=== PATIENT | female | born 1970 | race Caucasian/White ===

== ENCOUNTER → 2016-11-11 15:48 | Emergency (ER) | payer OTHER | END | disposition left against medical advice (07) | LOC: D.ER 15:48 | DX: S16.1XXA Strain of muscle, fascia and tendon at neck level, initial encounter (principal); V43.52XA Car driver injured in collision with other type car in traffic accident, initial encounter; Y93.89 Activity, other specified; Y92.410 Unspecified street and highway as the place of occurrence of the external cause; M79.604 Pain in right leg; F17.200 Nicotine dependence, unspecified, uncomplicated ==

== ENCOUNTER 2016-11-11 17:40 | Emergency (ER) | payer OTHER | END 2016-11-11 20:22 | disposition home or self-care (01) | LOC: D.ER 17:40 | DX: G89.18 Other acute postprocedural pain (principal); T81.4XXA Infection following a procedure, initial encounter; L08.9 Local infection of the skin and subcutaneous tissue, unspecified; E11.9 Type 2 diabetes mellitus without complications; I10 Essential (primary) hypertension ==

== ENCOUNTER 2016-11-15 10:15 | Emergency (ER) | payer OTHER | END 2016-11-15 12:09 | disposition home or self-care (01) | LOC: D.ER 10:15 | DX: M54.10 Radiculopathy, site unspecified (principal) ==

== ENCOUNTER 2018-07-21 08:08 | Emergency (ER) | payer OTHER ==
[~2018-07-21] VITALS: Ht 160 cm; Wt 76.4 kg
[2018-07-21 08:41] VITALS: Ht 160 cm; Wt 76.4 kg
[2018-07-21 08:51] LABS: BASOPHILS 0.2 % (0-2); EOSINOPHILS 0.3 % (0-7); HEMATOCRIT 48.5 % (36.0-48.0); HEMOGLOBIN 16.8 g/dL (12-16); IMMATURE GRANULOCYTES 0.3 % (0-5); MCH 31.1 pg (26.0-34.0); MCHC 34.6 g/dL (31.0-37.0); MCV 89.6 fL (80.0-100.0); MEAN PLATELET VOLUME 9.3 fL (7.4-10.4); MONOCYTES 4.5 % (2-11); NEUTROPHILS 77.7 % (40-80); PLATELET COUNT 276 10x3/uL (130-400); RBC 5.41 10x6/uL (4.00-5.40); RDW 13.5 % (11.5-14.5); WBC 12.2 10x3/uL (4.8-10.8)
[2018-07-21 08:56] LABS: ALBUMIN 3.7 g/dL (3.4-5.0); ALKALINE PHOSPHATASE 100 U/L (46-116); ALT (SGPT) 27 U/L (10-68); BILIRUBIN - TOTAL 0.26 mg/dL (0.2-1.3); CALC OSMOLALITY 275 mosm/kg (275-300); CALCIUM 9.6 mg/dL (8.5-10.1); CARBON DIOXIDE 26.5 mmol/L (21.0-32.0); CHLORIDE - SERUM 102 mmol/L (98-107); CREATININE - SERUM 0.8 mg/dL (0.6-1.3); GLUCOSE 121 mg/dL (74-106); POTASSIUM - SERUM 4.3 mmol/L (3.5-5.1); PROTEIN - SERUM 7.7 g/dL (6.4-8.2); SODIUM 136 mmol/L (136-145); UREA NITROGEN 20 mg/dL (7-18); eGFR NON AFRICAN AMERICAN 80 mL/min (90-120)
[2018-07-21 09:08] LABS: CKMB 0.7 U/L (0.0-3.6); CREATINE KINASE 75 UL (21-215); LIPASE 229 U/L (73-393); TROPONIN-I < 0.017 ng/mL (0.000-0.060)
[2018-07-21 12:04] LABS: AMORPHOUS SEDIMENT <1+ /lpf (NONE SEEN); APPEARANCE HAZY (CLEAR); BACTERIA FEW /hpf (NONE SEEN); BILIRUBIN NEGATIVE (NEGATIVE); COLOR YELLOW (YELLOW); EPITHELIAL CELLS RARE /hpf (0-5); GLUCOSE NEGATIVE (NEGATIVE); KETONE NEGATIVE (NEGATIVE); NITRITE NEGATIVE (NEGATIVE); PROTEIN NEGATIVE (NEGATIVE); WHITE CELLS - URINE RARE /hpf (0-5)
[2018-07-21] MEDS ORDERED: PROTONIX40 MG PO (13:46)
[2018-07-21] MEDS ORDERED: ZOFRAN4 MG PO (13:46)
[2018-07-21 14:06] VITALS: BP 111/64
== END 2018-07-21 14:08 | disposition home or self-care (01) ==
LOC: D.ER 08:08
PROVIDERS: Family Medicine
DX: R11.10 Vomiting, unspecified (principal); K29.70 Gastritis, unspecified, without bleeding; R55 Syncope and collapse

== ENCOUNTER 2018-08-03 18:57 | Inpatient (IN) | payer OTHER ==
[~2018-08-03] VITALS: Ht 160 cm; Wt 72.7 kg
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
[~2018-08-03 18:57] MED LIST: PROTONIX40 MG PO; ZOFRAN4 MG PO
[2018-08-03 19:20] LABS: BASOPHILS 0.1 % (0-2); EOSINOPHILS 1.1 % (0-7); HEMOGLOBIN 16.7 g/dL (12-16); IMMATURE GRANULOCYTES 0.3 % (0-5); LYMPHOCYTES 28.1 % (15-50); MCH 31.3 pg (26.0-34.0); MCHC 35.5 g/dL (31.0-37.0); MCV 88.2 fL (80.0-100.0); MEAN PLATELET VOLUME 9.1 fL (7.4-10.4); NEUTROPHILS 59.4 % (40-80); PLATELET COUNT 195 10x3/uL (130-400); RBC 5.33 10x6/uL (4.00-5.40); RDW 13.3 % (11.5-14.5)
[2018-08-03 19:35] LABS: ALBUMIN 3.5 g/dL (3.4-5.0); ANION GAP 17.8 mmol/L (8-16); BILIRUBIN - TOTAL 0.29 mg/dL (0.2-1.3); CALCIUM 8.3 mg/dL (8.5-10.1); CARBON DIOXIDE 21.2 mmol/L (21.0-32.0); CREATININE - SERUM 0.9 mg/dL (0.6-1.3)
[2018-08-03 20:00] VITALS: BP 144/72
[2018-08-03 22:57] VITALS: BP 114/77; BMI 28.4
[2018-08-04 08:05] VITALS: BP 122/75
[2018-08-04 09:12] LABS: BASOPHILS 0.1 % (0-2); EOSINOPHILS 1.1 % (0-7); HEMATOCRIT 41.6 % (36.0-48.0); HEMOGLOBIN 14.2 g/dL (12-16); IMMATURE GRANULOCYTES 0.2 % (0-5); LYMPHOCYTES 18.8 % (15-50); MCH 30.7 pg (26.0-34.0); MCHC 34.1 g/dL (31.0-37.0); MCV 89.8 fL (80.0-100.0); MEAN PLATELET VOLUME 9.2 fL (7.4-10.4); MONOCYTES 10.7 % (2-11); NEUTROPHILS 69.1 % (40-80); PLATELET COUNT 197 10x3/uL (130-400); RBC 4.63 10x6/uL (4.00-5.40); RDW 13.5 % (11.5-14.5); WBC 8.4 10x3/uL (4.8-10.8)
[2018-08-04 09:21] LABS: ALKALINE PHOSPHATASE 89 U/L (46-116); ALT (SGPT) 17 U/L (10-68); BILIRUBIN - TOTAL 0.27 mg/dL (0.2-1.3); CALC OSMOLALITY 273 mosm/kg (275-300); CALCIUM 7.7 mg/dL (8.5-10.1); CHLORIDE - SERUM 104 mmol/L (98-107); CREATININE - SERUM 0.7 mg/dL (0.6-1.3); GLUCOSE 87 mg/dL (74-106); POTASSIUM - SERUM 3.7 mmol/L (3.5-5.1); PROTEIN - SERUM 6.3 g/dL (6.4-8.2); SODIUM 138 mmol/L (136-145); UREA NITROGEN 11 mg/dL (7-18); eGFR NON AFRICAN AMERICAN > 90 mL/min (90-120)
[2018-08-04 12:10] VITALS: BP 112/69
[2018-08-04 15:18] VITALS: BP 104/68
[2018-08-04 20:00] VITALS: BP 110/69
[2018-08-05] VITALS: BP 115/71
[2018-08-05 04:35] LABS: BASOPHILS 0.3 % (0-2); EOSINOPHILS 1.3 % (0-7); HEMATOCRIT 40.4 % (36.0-48.0); HEMOGLOBIN 13.5 g/dL (12-16); IMMATURE GRANULOCYTES 0.3 % (0-5); LYMPHOCYTES 32.1 % (15-50); MCHC 33.4 g/dL (31.0-37.0); MCV 89.8 fL (80.0-100.0); MONOCYTES 13.4 % (2-11); NEUTROPHILS 52.6 % (40-80); PLATELET COUNT 179 10x3/uL (130-400); RDW 13.5 % (11.5-14.5); WBC 6.4 10x3/uL (4.8-10.8)
[2018-08-05 04:52] LABS: ALBUMIN 2.6 g/dL (3.4-5.0); ALKALINE PHOSPHATASE 80 U/L (46-116); ALT (SGPT) 18 U/L (10-68); BILIRUBIN - TOTAL 0.36 mg/dL (0.2-1.3); CALC OSMOLALITY 276 mosm/kg (275-300); CALCIUM 7.9 mg/dL (8.5-10.1); CARBON DIOXIDE 25.5 mmol/L (21.0-32.0); CHLORIDE - SERUM 106 mmol/L (98-107); CREATININE - SERUM 0.6 mg/dL (0.6-1.3); GLUCOSE 76 mg/dL (74-106); PROTEIN - SERUM 5.9 g/dL (6.4-8.2); SODIUM 141 mmol/L (136-145); eGFR NON AFRICAN AMERICAN > 90 mL/min (90-120)
[2018-08-05 05:00] LABS: UREA NITROGEN 5 mg/dL (7-18)
[2018-08-05 06:41] VITALS: BP 111/66
[2018-08-05 08:07] VITALS: BP 109/68
[2018-08-05 16:40] VITALS: BP 124/72
[2018-08-05 20:00] VITALS: BP 112/71
[2018-08-06 00:40] VITALS: BP 109/70
[2018-08-06 04:24] LABS: BASOPHILS 0.2 % (0-2); EOSINOPHILS 1.2 % (0-7); HEMATOCRIT 37.6 % (36.0-48.0); HEMOGLOBIN 12.6 g/dL (12-16); IMMATURE GRANULOCYTES 0.1 % (0-5); LYMPHOCYTES 20.6 % (15-50); MCH 29.8 pg (26.0-34.0); MCHC 33.5 g/dL (31.0-37.0); MCV 88.9 fL (80.0-100.0); MEAN PLATELET VOLUME 8.8 fL (7.4-10.4); MONOCYTES 10.9 % (2-11); PLATELET COUNT 177 10x3/uL (130-400); RBC 4.23 10x6/uL (4.00-5.40); RDW 13.4 % (11.5-14.5)
[2018-08-06 04:32] LABS: WBC 8.1 10x3/uL (4.8-10.8)
[2018-08-06 04:39] VITALS: BP 113/67
[2018-08-06 04:49] LABS: ALBUMIN 2.5 g/dL (3.4-5.0); ALKALINE PHOSPHATASE 74 U/L (46-116); ALT (SGPT) 17 U/L (10-68); BILIRUBIN - TOTAL 0.73 mg/dL (0.2-1.3); CALC OSMOLALITY 277 mosm/kg (275-300); CALCIUM 7.7 mg/dL (8.5-10.1); CARBON DIOXIDE 24.9 mmol/L (21.0-32.0); CHLORIDE - SERUM 105 mmol/L (98-107); CREATININE - SERUM 0.6 mg/dL (0.6-1.3); GLUCOSE 75 mg/dL (74-106); POTASSIUM - SERUM 3.7 mmol/L (3.5-5.1); PROTEIN - SERUM 5.8 g/dL (6.4-8.2); SODIUM 141 mmol/L (136-145); eGFR NON AFRICAN AMERICAN > 90 mL/min (90-120)
[2018-08-06 04:56] LABS: UREA NITROGEN 8 mg/dL (7-18)
[2018-08-06 08:56] VITALS: BP 103/67
[2018-08-06 12:20] VITALS: Ht 160 cm; Wt 72.7 kg
[2018-08-06 13:34] VITALS: BP 113/72
[2018-08-06 16:25] VITALS: BP 102/60
[2018-08-06 20:00] VITALS: BP 102/67
[2018-08-07] VITALS (12 sets, daily range): BP systolic 96–126; BP diastolic 54–80
[2018-08-07 04:28] LABS: BASOPHILS 0.1 % (0-2); EOSINOPHILS 3.2 % (0-7); HEMATOCRIT 36.7 % (36.0-48.0); HEMOGLOBIN 12.4 g/dL (12-16); IMMATURE GRANULOCYTES 0.4 % (0-5); LYMPHOCYTES 11.7 % (15-50); MCH 29.9 pg (26.0-34.0); MCHC 33.8 g/dL (31.0-37.0); MCV 88.4 fL (80.0-100.0); MEAN PLATELET VOLUME 8.9 fL (7.4-10.4); MONOCYTES 10.1 % (2-11); NEUTROPHILS 74.5 % (40-80); PLATELET COUNT 190 10x3/uL (130-400); RBC 4.15 10x6/uL (4.00-5.40); RDW 13.3 % (11.5-14.5); WBC 8.5 10x3/uL (4.8-10.8)
[2018-08-07 04:55] LABS: ALBUMIN 2.3 g/dL (3.4-5.0); ALKALINE PHOSPHATASE 67 U/L (46-116); BILIRUBIN - TOTAL 0.82 mg/dL (0.2-1.3); CALC OSMOLALITY 270 mosm/kg (275-300); CALCIUM 7.5 mg/dL (8.5-10.1); CARBON DIOXIDE 26.1 mmol/L (21.0-32.0); CHLORIDE - SERUM 102 mmol/L (98-107); CREATININE - SERUM 0.6 mg/dL (0.6-1.3); GLUCOSE 86 mg/dL (74-106); POTASSIUM - SERUM 3.7 mmol/L (3.5-5.1); PROTEIN - SERUM 5.6 g/dL (6.4-8.2); SODIUM 137 mmol/L (136-145); UREA NITROGEN 6 mg/dL (7-18); eGFR NON AFRICAN AMERICAN > 90 mL/min (90-120)
[2018-08-07 04:58] LABS: ALT (SGPT) 12 U/L (10-68)
[2018-08-08 00:58] VITALS: BP 107/62
[2018-08-08 05:02] LABS: BASOPHILS 0.1 % (0-2); HEMATOCRIT 32.3 % (36.0-48.0); HEMOGLOBIN 11.1 g/dL (12-16); IMMATURE GRANULOCYTES 0.5 % (0-5); LYMPHOCYTES 14.1 % (15-50); MCH 30.2 pg (26.0-34.0); MCHC 34.4 g/dL (31.0-37.0); MEAN PLATELET VOLUME 8.8 fL (7.4-10.4); MONOCYTES 9.1 % (2-11); NEUTROPHILS 75.2 % (40-80); RBC 3.67 10x6/uL (4.00-5.40); RDW 13.1 % (11.5-14.5)
[2018-08-08 05:11] LABS: PLATELET COUNT 231 10x3/uL (130-400); WBC 11.1 10x3/uL (4.8-10.8)
[2018-08-08 05:14] LABS: ALBUMIN 2.1 g/dL (3.4-5.0); ALKALINE PHOSPHATASE 58 U/L (46-116); ALT (SGPT) 15 U/L (10-68); BILIRUBIN - TOTAL 0.48 mg/dL (0.2-1.3); CALC OSMOLALITY 276 mosm/kg (275-300); CALCIUM 8.3 mg/dL (8.5-10.1); CARBON DIOXIDE 27.2 mmol/L (21.0-32.0); CHLORIDE - SERUM 105 mmol/L (98-107); CREATININE - SERUM 0.6 mg/dL (0.6-1.3); GLUCOSE 104 mg/dL (74-106); POTASSIUM - SERUM 3.9 mmol/L (3.5-5.1); PROTEIN - SERUM 5.5 g/dL (6.4-8.2); SODIUM 140 mmol/L (136-145); eGFR NON AFRICAN AMERICAN > 90 mL/min (90-120)
[2018-08-08 05:15] LABS: UREA NITROGEN 8 mg/dL (7-18)
[2018-08-08 05:44] VITALS: BP 108/68
[2018-08-08 08:01] VITALS: BP 128/71
[2018-08-08 16:35] VITALS: BP 126/74
[2018-08-08 20:00] VITALS: BP 97/62
[2018-08-09] VITALS: BP 98/61
[2018-08-09 04:00] VITALS: BP 117/70
[2018-08-09 06:27] LABS: BASOPHILS 0.2 % (0-2); EOSINOPHILS 6.3 % (0-7); HEMATOCRIT 31.4 % (36.0-48.0); HEMOGLOBIN 10.3 g/dL (12-16); IMMATURE GRANULOCYTES 0.3 % (0-5); LYMPHOCYTES 23.9 % (15-50); MCH 29.7 pg (26.0-34.0); MCHC 32.8 g/dL (31.0-37.0); MEAN PLATELET VOLUME 8.6 fL (7.4-10.4); MONOCYTES 10.6 % (2-11); NEUTROPHILS 58.7 % (40-80); PLATELET COUNT 249 10x3/uL (130-400); RBC 3.47 10x6/uL (4.00-5.40); RDW 13.3 % (11.5-14.5); WBC 8.8 10x3/uL (4.8-10.8)
[2018-08-09 06:31] LABS: MCV 90.5 fL (80.0-100.0)
[2018-08-09 06:57] LABS: ALKALINE PHOSPHATASE 52 U/L (46-116); CALC OSMOLALITY 282 mosm/kg (275-300); CALCIUM 8.1 mg/dL (8.5-10.1); CARBON DIOXIDE 29.2 mmol/L (21.0-32.0); CHLORIDE - SERUM 105 mmol/L (98-107); CREATININE - SERUM 0.7 mg/dL (0.6-1.3); GLUCOSE 91 mg/dL (74-106); PROTEIN - SERUM 5.3 g/dL (6.4-8.2); SODIUM 143 mmol/L (136-145); UREA NITROGEN 7 mg/dL (7-18); eGFR NON AFRICAN AMERICAN > 90 mL/min (90-120)
[2018-08-09 07:08] LABS: ALT (SGPT) 11 U/L (10-68); POTASSIUM - SERUM 3.2 mmol/L (3.5-5.1)
[2018-08-09 08:36] VITALS: BP 128/73
[2018-08-09 13:15] VITALS: BP 112/71
[2018-08-09 16:44] VITALS: BP 106/61
[2018-08-09 20:00] VITALS: BP 104/60
[2018-08-10] VITALS (8 sets, daily range): BP systolic 95–126; BP diastolic 50–82
[2018-08-10 06:10] LABS: BASOPHILS 0.2 % (0-2); EOSINOPHILS 5.4 % (0-7); HEMATOCRIT 32.4 % (36.0-48.0); HEMOGLOBIN 10.5 g/dL (12-16); IMMATURE GRANULOCYTES 0.5 % (0-5); LYMPHOCYTES 23.5 % (15-50); MCH 29.2 pg (26.0-34.0); MCHC 32.4 g/dL (31.0-37.0); MCV 90.3 fL (80.0-100.0); MEAN PLATELET VOLUME 8.8 fL (7.4-10.4); MONOCYTES 11.4 % (2-11); PLATELET COUNT 282 10x3/uL (130-400); RBC 3.59 10x6/uL (4.00-5.40); RDW 13.3 % (11.5-14.5); WBC 8.7 10x3/uL (4.8-10.8)
[2018-08-10 06:47] LABS: ALKALINE PHOSPHATASE 55 U/L (46-116); BILIRUBIN - TOTAL 0.79 mg/dL (0.2-1.3); CALCIUM 8.5 mg/dL (8.5-10.1); CARBON DIOXIDE 29.7 mmol/L (21.0-32.0); CHLORIDE - SERUM 104 mmol/L (98-107); CREATININE - SERUM 0.6 mg/dL (0.6-1.3); GLUCOSE 94 mg/dL (74-106); PROTEIN - SERUM 5.5 g/dL (6.4-8.2); SODIUM 142 mmol/L (136-145); eGFR NON AFRICAN AMERICAN > 90 mL/min (90-120)
[2018-08-10 06:48] LABS: ALT (SGPT) 7 U/L (10-68); CALC OSMOLALITY 279 mosm/kg (275-300); POTASSIUM - SERUM 3.7 mmol/L (3.5-5.1); UREA NITROGEN 5 mg/dL (7-18)
[2018-08-11 04:00] VITALS: BP 112/65
[2018-08-11 04:40] LABS: BASOPHILS 0.3 % (0-2); EOSINOPHILS 6.3 % (0-7); HEMATOCRIT 31.9 % (36.0-48.0); HEMOGLOBIN 10.5 g/dL (12-16); IMMATURE GRANULOCYTES 0.8 % (0-5); LYMPHOCYTES 31.7 % (15-50); MCH 29.7 pg (26.0-34.0); MCHC 32.9 g/dL (31.0-37.0); MCV 90.4 fL (80.0-100.0); MEAN PLATELET VOLUME 8.3 fL (7.4-10.4); MONOCYTES 10.3 % (2-11); NEUTROPHILS 50.6 % (40-80); PLATELET COUNT 286 10x3/uL (130-400); RBC 3.53 10x6/uL (4.00-5.40); RDW 13.2 % (11.5-14.5); WBC 7.8 10x3/uL (4.8-10.8)
[2018-08-11 04:56] LABS: ALBUMIN 2.1 g/dL (3.4-5.0); ALKALINE PHOSPHATASE 60 U/L (46-116); BILIRUBIN - TOTAL 0.72 mg/dL (0.2-1.3); CALC OSMOLALITY 277 mosm/kg (275-300); CALCIUM 8.7 mg/dL (8.5-10.1); CARBON DIOXIDE 29.4 mmol/L (21.0-32.0); CHLORIDE - SERUM 104 mmol/L (98-107); CREATININE - SERUM 0.6 mg/dL (0.6-1.3); GLUCOSE 96 mg/dL (74-106); POTASSIUM - SERUM 3.7 mmol/L (3.5-5.1); PROTEIN - SERUM 5.7 g/dL (6.4-8.2); SODIUM 141 mmol/L (136-145); UREA NITROGEN 5 mg/dL (7-18); eGFR NON AFRICAN AMERICAN > 90 mL/min (90-120)
[2018-08-11 05:11] LABS: ALT (SGPT) 9 U/L (10-68)
[2018-08-11 08:42] VITALS: BP 116/74
[2018-08-11 16:27] VITALS: BP 103/71
[2018-08-11 20:00] VITALS: BP 104/68
[2018-08-12 05:00] VITALS: BP 121/79
[2018-08-12 06:11] LABS: BASOPHILS 0.2 % (0-2); EOSINOPHILS 5.3 % (0-7); HEMATOCRIT 32.5 % (36.0-48.0); HEMOGLOBIN 10.7 g/dL (12-16); IMMATURE GRANULOCYTES 0.6 % (0-5); MCH 29.5 pg (26.0-34.0); MCHC 32.9 g/dL (31.0-37.0); MCV 89.5 fL (80.0-100.0); MEAN PLATELET VOLUME 8.7 fL (7.4-10.4); MONOCYTES 11.4 % (2-11); NEUTROPHILS 53.5 % (40-80); RBC 3.63 10x6/uL (4.00-5.40); RDW 13.2 % (11.5-14.5); WBC 8.3 10x3/uL (4.8-10.8)
[2018-08-12 06:25] LABS: PLATELET COUNT 356 10x3/uL (130-400)
[2018-08-12 06:26] LABS: ALBUMIN 2.2 g/dL (3.4-5.0); ALKALINE PHOSPHATASE 65 U/L (46-116); BILIRUBIN - TOTAL 0.92 mg/dL (0.2-1.3); CALC OSMOLALITY 273 mosm/kg (275-300); CALCIUM 9.2 mg/dL (8.5-10.1); CARBON DIOXIDE 27.3 mmol/L (21.0-32.0); CHLORIDE - SERUM 102 mmol/L (98-107); CREATININE - SERUM 0.7 mg/dL (0.6-1.3); GLUCOSE 89 mg/dL (74-106); POTASSIUM - SERUM 3.5 mmol/L (3.5-5.1); PROTEIN - SERUM 6.1 g/dL (6.4-8.2); SODIUM 139 mmol/L (136-145); UREA NITROGEN 5 mg/dL (7-18); eGFR NON AFRICAN AMERICAN > 90 mL/min (90-120)
[2018-08-12 06:27] LABS: ALT (SGPT) 13 U/L (10-68)
[2018-08-12 08:21] VITALS: BP 104/52
[2018-08-12] MEDS ORDERED: DEMEROL100 MG PO (09:08)
[2018-08-12] MEDS ORDERED: MIRALAX17 GM PO (09:21)
[2018-08-12 12:28] VITALS: BP 83/44
== END 2018-08-12 14:20 | disposition home or self-care (01) | DRG 488 ==
LOC: D.ER 18:57 → D.EDHOLD 19:53 → D.MS 19:53
PROVIDERS: Family Medicine; Internal Medicine Nephrology; Orthopaedic Surgery
PROC: 0QSH04Z Reposition Left Tibia with Internal Fixation Device, Open Approach (ICD-10-PCS; 2018-08-07)
PROC: 0KNT0ZZ Release Left Lower Leg Muscle, Open Approach (ICD-10-PCS; 2018-08-07)
PROC: 0SQD0ZZ Repair Left Knee Joint, Open Approach (ICD-10-PCS; principal; 2018-08-07 08:30)
DX: S82.142A Displaced bicondylar fracture of left tibia, initial encounter for closed fracture (principal); F17.213 Nicotine dependence, cigarettes, with withdrawal; W19.XXXA Unspecified fall, initial encounter; Y92.009 Unspecified place in unspecified non-institutional (private) residence as the place of occurrence of the external cause; S82.402A Unspecified fracture of shaft of left fibula, initial encounter for closed fracture; S83.272A Complex tear of lateral meniscus, current injury, left knee, initial encounter

== ENCOUNTER → 2018-10-20 10:09 | Outpatient (CLI) | payer OTHER ==
[2018-08-06 12:20] VITALS: BMI 28.4
[~2018-10-20 10:09] MED LIST changes: +DEMEROL100 MG PO; +MIRALAX17 GM PO
== END | disposition home or self-care (01) ==
LOC: D.US 10:00
DX: S82.202D Unspecified fracture of shaft of left tibia, subsequent encounter for closed fracture with routine healing (principal); X58.XXXA Exposure to other specified factors, initial encounter

== ENCOUNTER 2019-02-28 23:33 | Inpatient (IN) | payer OTHER ==
[~2019-02-28] VITALS: Ht 160 cm; Wt 77.3 kg
[2019-03-01 00:02] LABS: BASOPHILS 0.2 % (0-2); EOSINOPHILS 1.4 % (0-7); HEMATOCRIT 45.4 % (36.0-48.0); HEMOGLOBIN 15.6 g/dL (12-16); IMMATURE GRANULOCYTES 0.3 % (0-5); LYMPHOCYTES 35.5 % (15-50); MCH 30.8 pg (26.0-34.0); MCHC 34.4 g/dL (31.0-37.0); MCV 89.5 fL (80.0-100.0); MEAN PLATELET VOLUME 8.7 fL (7.4-10.4); MONOCYTES 7.6 % (2-11); RBC 5.07 10x6/uL (4.00-5.40); RDW 14.3 % (11.5-14.5); WBC 10.4 10x3/uL (4.8-10.8)
[2019-03-01 00:04] LABS: PLATELET COUNT 215 10x3/uL (130-400)
[2019-03-01 00:26] LABS: ALBUMIN 3.4 g/dL (3.4-5.0); ANION GAP 8.9 mmol/L (8-16); BILIRUBIN - TOTAL 0.54 mg/dL (0.2-1.3); CALCIUM 9.6 mg/dL (8.5-10.1); CARBON DIOXIDE 31.6 mmol/L (21.0-32.0); CREATININE - SERUM 0.9 mg/dL (0.6-1.3); POTASSIUM - SERUM 3.5 mmol/L (3.5-5.1); PROTEIN - SERUM 7.3 g/dL (6.4-8.2)
[2019-03-01 01:55] LABS: APPEARANCE HAZY (CLEAR); BACTERIA FEW /hpf (NONE SEEN); BILIRUBIN NEGATIVE (NEGATIVE); COLOR DK YELLOW (YELLOW); GLUCOSE NEGATIVE (NEGATIVE); HYALINE CAST OCC /lpf (NONE SEEN); KETONE NEGATIVE (NEGATIVE); NITRITE NEGATIVE (NEGATIVE); PROTEIN TRACE mg/dL (NEGATIVE); RED CELLS - URINE 0-5 /hpf (0-5); SPECIFIC GRAVITY 1.015 (1.005-1.020); WHITE CELLS - URINE 0-5 /hpf (0-5)
[2019-03-01 03:29] VITALS: BP 132/75; BMI 30.1
[2019-03-01 07:47] VITALS: BP 98/54
[2019-03-01 13:06] VITALS: BP 103/66
[2019-03-01 17:10] VITALS: BP 116/77; BP 122/62
[2019-03-01 17:36] VITALS: Ht 160 cm; Wt 77.3 kg
--- NOTE | 2019-03-01 19:00 | NUR ---
ALERT AND ORIENTED. SISTER IN ROOM. DENIES DISCOMFORT AT THIS TIME. ASKS TO BE ABLE TO WALK AROUND HOSPITAL WITH SISTER. PROVIDED WHEEL CHAIR AND PT AND SISTER DOING LAPS IN [address]. IV RESITED TO THE RIGHT WRIST. 1 ATTEMPT, 20G. DENIES NEEDS AT THIS TIME. NO DISTRESS NOTED. ENCOURAGED TO USE CALL LIGHT WHEN IN NEED OF ASSISTANCE.
--- NOTE | 2019-03-02 04:34 | NUR ---
I have reviewed this patient and I concur with the Shift Assessment completed by the Licensed Practical Nurse today this shift.
[2019-03-02 04:57] VITALS: BP 115/67
[2019-03-02 05:31] LABS: BASOPHILS 0.3 % (0-2); EOSINOPHILS 3.5 % (0-7); HEMATOCRIT 42.6 % (36.0-48.0); HEMOGLOBIN 14.2 g/dL (12-16); IMMATURE GRANULOCYTES 0.2 % (0-5); LYMPHOCYTES 33.1 % (15-50); MCH 30.1 pg (26.0-34.0); MCHC 33.3 g/dL (31.0-37.0); MCV 90.4 fL (80.0-100.0); MEAN PLATELET VOLUME 9.3 fL (7.4-10.4); MONOCYTES 8.5 % (2-11); NEUTROPHILS 54.4 % (40-80); PLATELET COUNT 196 10x3/uL (130-400); RBC 4.71 10x6/uL (4.00-5.40); RDW 14.3 % (11.5-14.5)
[2019-03-02 05:35] LABS: WBC 5.8 10x3/uL (4.8-10.8)
[2019-03-02 05:52] LABS: ALBUMIN 2.8 g/dL (3.4-5.0); ALKALINE PHOSPHATASE 221 U/L (46-116); BILIRUBIN - TOTAL 2.02 mg/dL (0.2-1.3); CALCIUM 8.7 mg/dL (8.5-10.1); CARBON DIOXIDE 26.1 mmol/L (21.0-32.0); CHLORIDE - SERUM 110 mmol/L (98-107); CREATININE - SERUM 0.7 mg/dL (0.6-1.3); GLUCOSE 89 mg/dL (74-106); MAGNESIUM - SERUM 2.1 mg/dL (1.8-2.4); POTASSIUM - SERUM 3.8 mmol/L (3.5-5.1); PROTEIN - SERUM 6.1 g/dL (6.4-8.2); SODIUM 143 mmol/L (136-145); eGFR NON AFRICAN AMERICAN > 90 mL/min (90-120)
[2019-03-02 05:53] LABS: ALT (SGPT) 790 U/L (10-68); CALC OSMOLALITY 282 mosm/kg (275-300); UREA NITROGEN 11 mg/dL (7-18)
[2019-03-02 09:11] VITALS: BP 120/67
[2019-03-02 13:29] VITALS: BP 116/58
--- NOTE | 2019-03-02 16:23 | NUR ---
PT TO OR PER BED
[2019-03-02 21:13] VITALS: BP 105/73
[2019-03-03 01:37] VITALS: BP 95/61
--- NOTE | 2019-03-03 01:44 | NUR ---
PT REPORTS INTENSE GAS PAIN AFTER AMBULATING BACK TO BED FROM BATHROOM. REQUESTS SOMETHING TO HELP KEEP HER MOUTH MOIST. WILL CONTINUE TO MONITOR.
--- NOTE | 2019-03-03 03:09 | NUR ---
I have reviewed this patient and I concur with the Shift Assessment completed by the Licensed Practical Nurse today this shift.
[2019-03-03 03:52] VITALS: BP 103/64
[2019-03-03 07:54] LABS: BASOPHILS 0.1 % (0-2); EOSINOPHILS 0 % (0-7); HEMATOCRIT 46.2 % (36.0-48.0); HEMOGLOBIN 15.4 g/dL (12-16); IMMATURE GRANULOCYTES 0.4 % (0-5); LYMPHOCYTES 7.4 % (15-50); MCH 30.9 pg (26.0-34.0); MCHC 33.3 g/dL (31.0-37.0); MEAN PLATELET VOLUME 9.7 fL (7.4-10.4); MONOCYTES 4.3 % (2-11); NEUTROPHILS 87.8 % (40-80); PLATELET COUNT 227 10x3/uL (130-400); RBC 4.99 10x6/uL (4.00-5.40); RDW 14.5 % (11.5-14.5)
[2019-03-03 07:58] LABS: MCV 92.6 fL (80.0-100.0); WBC 16.3 10x3/uL (4.8-10.8)
--- NOTE | 2019-03-03 08:08 | NUR ---
PT IS RESTING IN BED WITH EYES OPEN. RESPIRATIONS ARE EVEN AND UNLABORED. PT REPORTS SLIGHT PAIN. LAP SITES X 4 BANDAID X 1 TO ABDOMEN. ALL ARE C/D/I. PT IS AAO X 4. PT DENIES FURTHER NEEDS. BED IS IN THE LOWEST POSITION. CALL LIGHT AND BEDSIDE TABLE ARE WITHIN REACH. SIDE RAILS X 2. WILL CONT TO MONITOR.
[2019-03-03 08:14] LABS: ALBUMIN 3.4 g/dL (3.4-5.0); ALKALINE PHOSPHATASE 280 U/L (46-116); ALT (SGPT) 696 U/L (10-68); BILIRUBIN - TOTAL 0.99 mg/dL (0.2-1.3); CALCIUM 9.4 mg/dL (8.5-10.1); CARBON DIOXIDE 25.7 mmol/L (21.0-32.0); CHLORIDE - SERUM 104 mmol/L (98-107); CREATININE - SERUM 0.8 mg/dL (0.6-1.3); GLUCOSE 104 mg/dL (74-106); MAGNESIUM - SERUM 1.9 mg/dL (1.8-2.4); PROTEIN - SERUM 7.3 g/dL (6.4-8.2); SODIUM 140 mmol/L (136-145); eGFR NON AFRICAN AMERICAN 80 mL/min (90-120)
[2019-03-03 08:17] LABS: CALC OSMOLALITY 279 mosm/kg (275-300); POTASSIUM - SERUM 4.5 mmol/L (3.5-5.1); UREA NITROGEN 15 mg/dL (7-18)
[2019-03-03 09:30] VITALS: BP 103/49
--- NOTE | 2019-03-03 10:46 | NUR ---
PT REPORTS THAT SHE WOULD LIKE TO ADD SISTER DAVID AGUIRRE TO HIPAA FORM AND STATES THAT IF SHE SHOULD BECOME UNABLE TO MAKE OWN DECISIONS SISTER DAVID AGUIRRE IS TO BE DECISION MAKER FOR PT. PT STATES THAT SHE WOULD LIKE SET PASSWORD TANK.
--- NOTE | 2019-03-03 11:12 | MORECARE ---
CASE MANAGEMENT DISCHARGE SUMMARY PATIENT: ZAINAB CORDERO UNIT: [id number] ADM DATE: 03/01/19 AGE: 48 : 66 SEX: F ROOM/BED: D.2224 AUTHOR: JORGE,DOC PHYSICIAN: REFERRING PHYSICIAN: RUSSELL HAND MD DATE OF SERVICE: 03/03/19 Discharge Plan Patient Name: ZAINAB CORDERO Facility: [facility]:[place] : 1970 Planned Disposition: Home Anticipated Discharge Date: Discharge Date: Expected LOS: Initial Reviewer: [email or web address] Initial Review Date: 03/03/2019 Generated: 03/03/19 12:12 pm Comments DCP- Discharge Planning Updated by [email or web address]: Kamille Garza on 03/03/19 10:[address] Patient Name: ZAINAB CORDERO Admission Status: ER Accout number: [id number] Admission Date: 03-01-2019 : 1970 Admission Diagnosis:CALCULUS OF BILE DUCT W ACUTE CHOLECYSTITIS W/O OBSTRUC Attending: RUSSELL HAND Current LOS: 2 Anticipated DC Date: Planned Disposition: Home Primary Insurance: [facility] Discharge Planning Comments: CM met with patient to complete initial dc planning assessment. CM educated patient on the CM role and verbal consent given by patient to complete assessment. Patient lives at home with her . At discharge patient plans to return and feels this is a safe discharge. CM discussed availability of home health, rehab services, and medical equipment. Patient denied known discharge needs at this time. She states her will pick her up on discharge. CM will continue to follow and will assist as needed with dc plans/needs. Storage Management Consultant: Kamille Garza DCPIA - Discharge Planning Initial Assessment Updated by [email or web address]: Kamille Garza on 03/03/19 11:07 am * Is the patient Alert and Oriented? Yes * How many steps to enter\exit or inside your home? 1/0 * PCP Dr. Christiansen * Pharmacy [facility] * Preadmission Environment Home with Family * ADLs Independent * Equipment Wheelchair * List name and contact numbers for known caregivers / representatives who currently or will assist patient after discharge: Arvin arguelles - [phone] * Verbal permission to speak to the caregivers and representatives has been obtained from the patient. Yes * Community resources currently utilized None * Additional services required to return to the preadmission environment? No * Can the patient safely return to the preadmission environment? Yes * Has this patient been hospitalized within the prior 30 days at any hospital? No Patient Name: ZAINAB CORDERO Page [phone] at 1112 All edits/amendments must be made on the electronic document DICTATION DATE: 03/03/19 1111 VP PURCHASING: JENNIFFER 03/03/19 1111 RPT#: [id number] [place] DATE: STATUS: ADM IN [facility] [address] [place] [address] END OF REPORT
[2019-03-03 13:32] VITALS: BP 97/56
[2019-03-03 17:19] VITALS: BP 116/63
[2019-03-03 21:47] VITALS: BP 120/63
[2019-03-04 04:53] VITALS: BP 121/76
--- NOTE | 2019-03-04 06:00 | NUR ---
PT SEEN IN CHAIR IN HALLWAY, RETURNING FROM A SMOKE BREAK.
--- NOTE | 2019-03-04 07:07 | NUR ---
PT IS RESTING IN BED WITH EYES OPEN. RESPIRATIONS ARE EVEN AND UNLABORED. PT REPORTS SLIGHT SPASM PAIN TO LEFT UPPER QUADRANT. PT DENIES NEEDS AT THIS TIME. PT DENIES PRESENCE OF N/V. BED IS IN THE LOWEST POSITION. CALL LIGHT AND BEDSIDE TABLE ARE WITHIN REACH. SIDE RAILS X 2. PT DENIES FURTHER NEEDS. WILL CONT TO MONITOR.
[2019-03-04 07:42] LABS: BASOPHILS 0.2 % (0-2); EOSINOPHILS 1.6 % (0-7); HEMATOCRIT 42.4 % (36.0-48.0); HEMOGLOBIN 14.4 g/dL (12-16); IMMATURE GRANULOCYTES 0.2 % (0-5); LYMPHOCYTES 34.5 % (15-50); MCH 31.3 pg (26.0-34.0); MCV 92.2 fL (80.0-100.0); MEAN PLATELET VOLUME 9.6 fL (7.4-10.4); MONOCYTES 7.3 % (2-11); NEUTROPHILS 56.2 % (40-80); PLATELET COUNT 209 10x3/uL (130-400); RDW 14.6 % (11.5-14.5)
[2019-03-04 07:48] LABS: WBC 8.6 10x3/uL (4.8-10.8)
[2019-03-04 07:51] LABS: ALKALINE PHOSPHATASE 216 U/L (46-116); BILIRUBIN - TOTAL 0.79 mg/dL (0.2-1.3); CALCIUM 8.6 mg/dL (8.5-10.1); CARBON DIOXIDE 28.5 mmol/L (21.0-32.0); CHLORIDE - SERUM 106 mmol/L (98-107); CREATININE - SERUM 0.7 mg/dL (0.6-1.3); GLUCOSE 75 mg/dL (74-106); MAGNESIUM - SERUM 1.8 mg/dL (1.8-2.4); POTASSIUM - SERUM 3.9 mmol/L (3.5-5.1); PROTEIN - SERUM 6.5 g/dL (6.4-8.2); SODIUM 141 mmol/L (136-145); eGFR NON AFRICAN AMERICAN > 90 mL/min (90-120)
[2019-03-04 07:53] LABS: ALT (SGPT) 457 U/L (10-68); CALC OSMOLALITY 278 mosm/kg (275-300); UREA NITROGEN 11 mg/dL (7-18)
[2019-03-04 08:49] VITALS: BP 130/79
[2019-03-04 13:23] VITALS: BP 119/67
--- NOTE | 2019-03-04 15:28 | NUR ---
PT TRANSPORTED OFF FLOOR FOR ERCP VIA BED BY HOSPITAL STAFF. PT DENIES FURTHER QUESTIONS/CONCERNS.
--- NOTE | 2019-03-04 17:47 | NUR ---
PT RETURNS TO ROOM FROM ERCP. PT IS AWAKE AND ALERT X 4 AT THIS TIME. BUT EASILY RETURNS TO A RESTING STATE WITH EYES CLOSED. PT IS EASILY AROUSED WITH VERBAL STIMULATION. PT DENIES PRESENCE OF PAIN AT THIS TIME. VSS. SEE FLOWSHEET. PT INFORMED OF DISCHARGE ORDER. PT EDUCATED ON NEED TO VOID PRIOR TO DC. PT VERBALIZES UNDERSTANDING. FAMILY IS AT BEDSIDE. BED IS IN THE LOWEST POSITION. CALL LIGHT AND BEDSIDE TABLE ARE WITHIN REACH. SIDE RAILS X 2. PT DENIES PRESENCE OF PAIN/N/V/DYSPNEA. PT AND PT FAMILY DENY FURTHER NEEDS. WILL CONT TO MONITOR.
[2019-03-04 17:49] VITALS: BP 119/80
--- NOTE | 2019-03-04 18:07 | NUR ---
TRAY TO BE BROUGHT TO PT ROOM WITH DIET DR PAZ AT PT REQUEST. PT VOID MODERATE AMOUNT OF CLEAR YELLOW URINE IN BEDPAN. PT IS STILL DROWSY. WILL CONT TO MONITOR.
--- NOTE | 2019-03-04 19:25 | NUR ---
PT SITTING UP IN BED WITHOUT DISTRESS, ALERT AND ORIENTED. STATES PAIN 4/10 IN ABD. ASSISTED PT IN CHANGING OUT OF GOWN INTO PAJAMAS FROM HOME PER PT REQUEST. IV RIGHT WRIST INFUSING NS @ 100. LAP SITES CDI. DENIES OTHER NEEDS. CL IN REACH, WILL CTM
[2019-03-04 20:50] VITALS: BP 127/60
[2019-03-05 04:00] VITALS: BP 121/70
[2019-03-05 06:37] LABS: BASOPHILS 0 % (0-2); EOSINOPHILS 0 % (0-7); IMMATURE GRANULOCYTES 0.2 % (0-5); LYMPHOCYTES 13.9 % (15-50); MCH 30.9 pg (26.0-34.0); MCHC 34.1 g/dL (31.0-37.0); MCV 90.5 fL (80.0-100.0); MEAN PLATELET VOLUME 9.6 fL (7.4-10.4); MONOCYTES 5.6 % (2-11); NEUTROPHILS 80.3 % (40-80); PLATELET COUNT 199 10x3/uL (130-400); RBC 4.53 10x6/uL (4.00-5.40); RDW 14.2 % (11.5-14.5); WBC 9.3 10x3/uL (4.8-10.8)
[2019-03-05 06:54] LABS: ALKALINE PHOSPHATASE 300 U/L (46-116); ALT (SGPT) 508 U/L (10-68); CALC OSMOLALITY 276 mosm/kg (275-300); CALCIUM 8.8 mg/dL (8.5-10.1); CARBON DIOXIDE 26.3 mmol/L (21.0-32.0); CHLORIDE - SERUM 104 mmol/L (98-107); CREATININE - SERUM 0.7 mg/dL (0.6-1.3); GLUCOSE 92 mg/dL (74-106); MAGNESIUM - SERUM 1.9 mg/dL (1.8-2.4); POTASSIUM - SERUM 4.2 mmol/L (3.5-5.1); PROTEIN - SERUM 6.7 g/dL (6.4-8.2); SODIUM 139 mmol/L (136-145); UREA NITROGEN 9 mg/dL (7-18); eGFR NON AFRICAN AMERICAN > 90 mL/min (90-120)
[2019-03-05 09:48] VITALS: BP 103/66
--- NOTE | 2019-03-05 10:23 | NUR ---
PATIENT UP WALKING AROUND TO GET RID OF THE GAS PAIN SHE FEELS IN HER SHOULDER. NO NEEDS AT THIS TIME WCTM
[2019-03-05] MEDS ORDERED: Nicoderm [PBKC] TRANSDERM (12:26)
[2019-03-05] MEDS ORDERED: MUCINEX600 MG PO (12:26)
[2019-03-05] MEDS ORDERED: TESSALON PERLE100 MG PO (12:26)
[2019-03-05] MEDS ORDERED: TORADOL10 MG PO (12:39)
--- NOTE | 2019-03-05 13:13 | MORECARE ---
CASE MANAGEMENT DISCHARGE SUMMARY PATIENT: ZAINAB CORDERO UNIT: [id number] ADM DATE: 03/01/19 AGE: 48 : 66 SEX: F ROOM/BED: D.2224 AUTHOR: JORGEDOC PHYSICIAN: REFERRING PHYSICIAN: RUSSELL HAND MD DATE OF SERVICE: 03/05/19 Discharge Plan Patient Name: ZAINAB CORDERO Facility: [facility]:[place] : 1970 Planned Disposition: Home Anticipated Discharge Date: Discharge Date: Expected LOS: Initial Reviewer: [email or web address] Initial Review Date: 03/03/2019 Generated: 03/05/19 2:13 pm Comments DCP- Discharge Planning Updated by [email or web address]: Kamille Garza on 03/05/19 12:[address] Patient Name: ZAINAB CORDERO Encounter No: [id number] : 1970 Primary Insurance: [facility] Anticipated DC Date: Planned Disposition: Home External Planned Provider: : DCP follow-up note: Patient and family in agreement with discharge plan. No changes to plan. Case management will follow and assist as needed. Kamille Garza DCP- Discharge Planning Updated by [email or web address]: Kamille Garza on 03/03/19 10:[address] Patient Name: ZAINAB CORDERO Admission Status: ER Accout number: [id number] Admission Date: 03-01-2019 : 1970 Admission Diagnosis:CALCULUS OF BILE DUCT W ACUTE CHOLECYSTITIS W/O OBSTRUC Attending: RUSSELL HAND Current LOS: 2 Anticipated DC Date: Planned Disposition: Home Primary Insurance: [facility] Discharge Planning Comments: CM met with patient to complete initial dc planning assessment. CM educated patient on the CM role and verbal consent given by patient to complete assessment. Patient lives at home with her . At discharge patient plans to return and feels this is a safe discharge. CM discussed availability of home health, rehab services, and medical equipment. Patient denied known discharge needs at this time. She states her will pick her up on discharge. CM will continue to follow and will assist as needed with dc plans/needs. Derrick Man: Kamille Garza DCPIA - Discharge Planning Initial Assessment Updated by [email or web address]: Kamille Garza on 03/03/19 11:07 am * Is the patient Alert and Oriented? Yes * How many steps to enter\exit or inside your home? 1/0 * PCP Dr. Christiansen * [facility] [address] * Preadmission Environment Home with Family * ADLs Independent * Equipment Wheelchair * List name and contact numbers for known caregivers / representatives who currently or will assist patient after discharge: Arvin [facility] - [phone] * Verbal permission to speak to the caregivers and representatives has been obtained from the patient. Yes * Community resources currently utilized None * Additional services required to return to the preadmission environment? No * Can the patient safely return to the preadmission environment? Yes * Has this patient been hospitalized within the prior 30 days at any hospital? No Last DP export: 03/03/19 10:12 am Patient Name: ZAINAB CORDERO Page [id number] at 1313 All edits/amendments must be made on the electronic document DICTATION DATE: 03/05/19 1313 LOG CUTTER: JENNIFFER 03/05/19 1313 RPT#: [id number] [place] DATE: STATUS: ADM IN [facility] [address] [place] [address] END OF REPORT
[2019-03-05 13:19] VITALS: BP 106/55
--- NOTE | 2019-03-05 13:47 | NUR ---
IV THERAPY DC'ED WITH TIP INTACT. DISCHARGE INSTRUCTIONS GIVEN AND PATIENT VERBALIZED UNDERSTANDING. PERSONAL WHEELCHAIR IN ROOM AND HERE TO TAKE HER HOME.
--- NOTE | 2019-03-06 09:05 | MORECARE ---
CASE MANAGEMENT DISCHARGE SUMMARY PATIENT: ZAINAB CORDERO UNIT: [id number] ADM DATE: 03/01/19 AGE: 48 : [birth year] SEX: F ROOM/BED: D.2224 AUTHOR: JORGE,DOC PHYSICIAN: REFERRING PHYSICIAN: RUSSELL HAND MD DATE OF SERVICE: 03/06/19 Discharge Plan Patient Name: ZAINAB CORDERO Facility: [facility]:[place] : 1970 Planned Disposition: Home Anticipated Discharge Date: Discharge Date: 03/05/2019 Expected LOS: Initial Reviewer: [email or web address] Initial Review Date: 03/03/2019 Generated: 03/06/19 10:05 am Comments DCP- Discharge Planning Updated by [email or web address]: Kaimlle Garza on 03/05/19 12:[address] Patient Name: ZAINAB CORDERO Encounter No: [id number] : 1970 Primary Insurance: [facility] Anticipated DC Date: Planned Disposition: Home External Planned Provider: : DCP follow-up note: Patient and family in agreement with discharge plan. No changes to plan. Case management will follow and assist as needed. Kamille Garza DCP- Discharge Planning Updated by [email or web address]: Kamille Garza on 03/03/19 10:[address] Patient Name: ZAINAB CORDERO Admission Status: ER Accout number: [id number] Admission Date: 03-01-2019 : 1970 Admission Diagnosis:CALCULUS OF BILE DUCT W ACUTE CHOLECYSTITIS W/O OBSTRUC Attending: RUSSELL HAND Current LOS: 2 Anticipated DC Date: Planned Disposition: Home Primary Insurance: [facility] Discharge Planning Comments: CM met with patient to complete initial dc planning assessment. CM educated patient on the CM role and verbal consent given by patient to complete assessment. Patient lives at home with her . At discharge patient plans to return and feels this is a safe discharge. CM discussed availability of home health, rehab services, and medical equipment. Patient denied known discharge needs at this time. She states her will pick her up on discharge. CM will continue to follow and will assist as needed with dc plans/needs. Line Service Supervisor: Kamille Sterlingell DCPIA - Discharge Planning Initial Assessment Updated by [email or web address]: Kamille Garza on 03/03/19 11:07 am * Is the patient Alert and Oriented? Yes * How many steps to enter\exit or inside your home? 1/0 * PCP Dr. Christiansen * [facility] [address] * Preadmission Environment Home with Family * ADLs Independent * Equipment Wheelchair * List name and contact numbers for known caregivers / representatives who currently or will assist patient after discharge: Arvin Mathis [facility] - [phone] * Verbal permission to speak to the caregivers and representatives has been obtained from the patient. Yes * Community resources currently utilized None * Additional services required to return to the preadmission environment? No * Can the patient safely return to the preadmission environment? Yes * Has this patient been hospitalized within the prior 30 days at any hospital? No External Providers External Provider: [facility] Next Contact Date: Service Request Date: Service Type: Resolution: Reviewer: Comments: Last DP export: 03/05/19 12:13 p Patient Name: ZAINAB CORDERO Page [id number] at 0905 All edits/amendments must be made on the electronic document DICTATION DATE: 03/06/19904 [employer] SORTER: JENNIFFER 03/06/19904 RPT#: [id number] DC DATE:03/05/19 STATUS: DIS IN [facility] [address] [place] [address] END OF REPORT
--- NOTE | 2019-03-06 16:06 | OP ---
PATIENT NAME: ZAINAB CORDERO MEDICAL RECORD: [id number] :[birth year] LOCATION:D.MS [id number] ADMISSION DATE:03/01/19 SURGEON: LUANN BUSCH MD DATE OF OPERATION: 03/02/2019 PREOPERATIVE DIAGNOSIS: Acute cholecystitis. SECONDARY DIAGNOSIS: Elevated liver function tests. POSTOPERATIVE DIAGNOSES: 1. Symptomatic gallstones. 2. Adhesions to the gallbladder. 3. Adhesions in the right upper quadrant. 4. Elevated liver function tests. 5. Retained distal common bile duct stone without evidence of complete obstruction of the flow of bile. PROCEDURES: 1. Laparoscopic cholecystectomy. 2. Intraoperative cholangiography without immediate surgeon interpretation. 3. A 14-gauge core needle liver biopsies. SURGEON: Luann Busch MD ONSHORE DIVER: None. BLOOD LOSS: Minimal. ANESTHESIA: General. COMPLICATIONS: None. The risks, possible complications, and alternatives to the procedures were explained to the patient. She elects to proceed. The discussion specifically included, but was not limited to, bleeding requiring emergency reoperation; infection; intestinal injury. OPERATIVE COURSE: The patient was conveyed to the operating room electively on 03/02/2019. General anesthesia was induced by the anesthesia staff. The abdomen was sterilely prepped and draped. A small skin lucian was accomplished in the left upper quadrant. A Veress needle was inserted through the skin lucian into the peritoneal cavity. CO2 insufflation was begun. Once a sufficient pneumoperitoneum had been achieved, a 5-mm trocar was inserted in the right upper quadrant. Under direct internal vision utilizing a television camera, a 5-mm trocar was inserted in the left upper quadrant, a 12-mm trocar was inserted through an incision at the umbilicus, and another 5-mm trocar was inserted far laterally in the right upper quadrant. During insertion of the Veress needle and all trocars, there appeared to have been no injury to the bowels, any intraperitoneal or retroperitoneal structures. Abdominal survey was undertaken. There were adhesions from the omentum to the right upper quadrant of uncertain etiology. These were taken down in their entireties utilizing the hook cautery. The reason for the liver biopsy was elevated liver function test. I advanced a OPERATIVE REPORT [id number] ZAINAB CORDERO 14-gauge core biopsy device under laparoscopic guidance. The cores were obtained over the convexity of the liver. The biopsy sites were made hemostatic with electrocautery. I then advanced a cholangiogram trocar. I punctured the fundus of the gallbladder. I aspirated bile. I then injected dye. Real time cholangiographic images were obtained and these were sent to the radiologist for interpretation. I then aspirated bile. I withdrew the cholangiogram trocar. The gallbladder was retracted cephalad. The infundibulum was grasped and retracted laterally. Blunt dissection was begun in the triangle of Calot. Two cystic arteries and one cystic duct were identified. These were clipped multiply and divided between clips. The gallbladder was excised from its bed in the liver. It was placed within a bag retrieval device and was withdrawn through the umbilical fascia defect. The 12-mm trocar was placed and the abdomen was reinsufflated. I irrigated and aspirated in the right upper quadrant. There was no bleeding even at low pressure of 8. Vicryl #0 sutures and Carlos Eduardo-Niki suture closure device were used to close the fascia at the umbilicus. All the trocars were removed and the abdomen was desufflated. I injected Marcaine into the tissues around the trocar sites. The Carlos Eduardo-Niki suture closure device and #0 Vicryl sutures were used to close the fascia at the umbilicus. All the trocars were removed and the abdomen was desufflated. The umbilical skin was approximated with interrupted 4-0 Vicryl Rapide sutures. The other trocar sites were closed with interrupted intracuticular 3-0 Vicryls. Benzoin and Steri-Strips were applied. The patient was then extubated and conveyed to the postanesthesia care unit, where she was in stable condition. We are going to consult Dr. Lewis due to the retained common bile duct stone, which is nonobstructing to the flow of bile. I have contacted Dr. Christiansen, who is in charge of the primary care team for this patient. TRANSINT:[id number] Voice Confirmation ID: [id number] DOCUMENT ID: [id number] LUANN BUSCH MD at 1606 CC: RUSSELL HAND MD, CLARKE CHRISTIANSEN and CACHORRO LEWIS DO [id number] DICTATION DATE: 03/02/191806 [employer]: 03/02/192156 DIS IN 03/05/19 [facility] [address] [place] [address]
== END 2019-03-05 13:52 | disposition home or self-care (01) | DRG 418 ==
LOC: D.ER 23:33 → D.MS 03-01 03:03
PROVIDERS: Emergency Medicine; Family Medicine; Surgery; ADMIT Internal Medicine Nephrology; ATTEND Internal Medicine Nephrology
PROC: 0FT44ZZ Resection of Gallbladder, Percutaneous Endoscopic Approach (ICD-10-PCS; principal; 2019-03-02 08:30)
PROC: 0FC98ZZ Extirpation of Matter from Common Bile Duct, Via Natural or Artificial Opening Endoscopic (ICD-10-PCS; 2019-03-04)
DX: K80.42 Calculus of bile duct with acute cholecystitis without obstruction (principal); K91.86 Retained cholelithiasis following cholecystectomy; K82.8 Other specified diseases of gallbladder; R94.5 Abnormal results of liver function studies